=== PATIENT | female | born 1960 | race Caucasian/White ===

== ENCOUNTER → 2016-12-18 | Outpatient (CLI) | payer OTHER ==
[~2016-12-18] MED LIST: LEVE500T13 PO; LEVO1TAB50 PO
== END | disposition home or self-care (01) ==
LOC: C.PAPS 16:46
PROVIDERS: ATTEND Obstetrics & Gynecology
DX: Z85.42 Personal history of malignant neoplasm of other parts of uterus (principal)

== ENCOUNTER → 2017-03-21 | Outpatient (CLI) | payer OTHER | END | disposition home or self-care (01) | LOC: C.PAPS 09:34 | PROVIDERS: ATTEND Obstetrics & Gynecology | DX: R93.8 Abnormal findings on diagnostic imaging of other specified body structures (principal) ==

== ENCOUNTER → 2017-03-21 | Outpatient (CLI) | payer OTHER ==
[2017-03-21 16:23] LABS: URINE APPEARANCE CLEAR (CLEAR); URINE BILIRUBIN NEG (NEG); URINE COLOR DK YELLOW; URINE EPITHELIAL CELL AUTO >30 /lpf (0-5); URINE NITRITE NEG (NEG); URINE PH 5.5 (4.5-7.5); URINE SPECIFIC GRAVITY 1.026 (1.000-1.030); UROBILINOGEN NEG (NEG); ZZUR CULT IF INDIC CLEAN CATCH NO
[2017-03-21 16:28] LABS: MANUAL MICROSCOPIC REQUIRED? NO; REVIEW REQ? NO
== END | disposition home or self-care (01) ==
LOC: C.LABSPEC 15:56
PROVIDERS: ATTEND Obstetrics & Gynecology
DX: R10.9 Unspecified abdominal pain (principal)

== ENCOUNTER → 2017-04-24 | Outpatient (CLI) | payer OTHER ==
[~2017-04-24] MED LIST changes: +OPTIRAY 320 IV PRN
--- NOTE | 2017-04-24 13:18 | DIAGNOSTIC IMAGING REPORT ---
ABD/PELVIS IV CONTRAST ONLY CLINICAL HISTORY: 56 years-old Female presenting with abdominal pain, endometrial cancer. TECHNIQUE: Multidetector CT of the abdomen and pelvis was performed after the administration of intravenous contrast. IV contrast: 92 mL of Optiray 320. A dose lowering technique was used consistent with the principles of ALARA (as low as reasonably achievable). COMPARISON: 09/20/2008. CT DOSE (mGy.cm): The estimated cumulative dose is 1060.48 mGy.cm. FINDINGS: [employer] topogram: Unremarkable. Lung bases: Dependent groundglass opacities likely atelectasis. Mosaic attenuation at the lung bases may indicate small airways disease or relate to the phase of respiration. Multichamber enlargement of the heart. No pericardial or pleural effusion. Liver: Normal morphology. No liver lesion. Patent hepatic vasculature. Biliary: No intrahepatic or extrahepatic biliary ductal dilatation. Gallbladder contains gallstones. Pancreas: Mild parenchymal atrophy. Spleen: Normal. Adrenal glands: Normal. Kidneys and ureters: Normal. No hydronephrosis. Normal ureters. Bladder: Incompletely evaluated secondary to underdistention. Pelvic organs: Uterus surgically absent. No adnexal masses. Bowel: Normal. No bowel obstruction. Peritoneal cavity: No free fluid or intraperitoneal gas. No peritoneal soft tissue nodularity. Vasculature: Atherosclerosis of the normal caliber abdominal aorta. IVC patent. Lymph nodes: Scattered subcentimeter mesenteric and retroperitoneal lymph nodes. No pathologically enlarged lymph nodes by CT size criteria. Abdominal wall: Postsurgical changes of the infraumbilical abdominal wall. Musculoskeletal: Degenerative changes of the spine. IMPRESSION: 1. No evidence of residual or recurrent disease. No metastatic disease in abdomen or pelvis. No lymphadenopathy. 2. Post surgical changes of hysterectomy. Electronically signed by: Joe Rueda M.D. 04/24/2017 1:17 PM Dictated Date/Time: 04/24/2017 1:12 PM
== END | disposition home or self-care (01) ==
LOC: C.CTS 12:51
PROVIDERS: ATTEND Obstetrics & Gynecology
DX: R10.9 Unspecified abdominal pain (principal); Z85.42 Personal history of malignant neoplasm of other parts of uterus

== ENCOUNTER → 2017-12-26 | Outpatient (CLI) | payer OTHER ==
[~2017-12-26] MED LIST changes: -OPTIRAY 320 IV PRN
== END | disposition home or self-care (01) ==
LOC: C.LABSPEC 14:05 → C.PAPS 14:05
PROVIDERS: ATTEND Obstetrics & Gynecology
DX: Z12.72 Encounter for screening for malignant neoplasm of vagina (principal); Z85.42 Personal history of malignant neoplasm of other parts of uterus